=== PATIENT | female | born 1980 | race Hispanic/Latino ===

== ENCOUNTER 2018-06-05 22:43 | Emergency (ER) | payer OTHER ==
[2018-06-06] MEDS ORDERED: CYCLOBENZAPRINE 10 MG TAB ONE (00:05)
[2018-06-06] MEDS ORDERED: KETOROLAC 30 MG/ML INJ ONE (00:06)
--- NOTE | 2018-06-06 00:36 | EDPHYS ---
Physician Documentation [facility] Name: Sonia Lawrence Age: 37 yrs Sex: Female : 1980 Arrival Date: 06/05/2018 Time: 22:44 Bed 27 Private MD: ED Physician Ankush Dow HPI: 06/05 23:36 This 37 yrs old Female presents to ER via Ambulatory with complaints of Low snw Back Pain. 23:36 The patient presents with pain that is acute. The symptoms are located in the low back. snw The pain does not radiate. The problem was sustained when lifting from twisting. Onset: The symptoms/episode began/occurred suddenly, 3 day(s) ago, and became persistent. Associated signs and symptoms: The patient has no apparent associated signs or symptoms. Severity of symptoms: At their worst the symptoms were moderate. The patient has not experienced similar symptoms in the past. It is unknown whether or not the patient has recently seen a physician. 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 - Social history:: Smoking status: Patient/guardian denies using tobacco, Patient/guardian denies using alcohol, street drugs. - Ebola Screening: : No symptoms or risks identified at this time. ROS: 23:35 Constitutional: Negative for fever, chills, and weight loss, Eyes: Negative for injury, snw pain, redness, and discharge, ENT: Negative for injury, pain, and discharge, Neck: Negative for injury, pain, and swelling, Cardiovascular: Negative for chest pain, palpitations, and edema, Respiratory: Negative for shortness of breath, cough, wheezing, and pleuritic chest pain, Abdomen/GI: Negative for abdominal pain, nausea, vomiting, diarrhea, and constipation, : Negative for injury, bleeding, discharge, and swelling, MS/Extremity: Negative for injury and deformity, Skin: Negative for injury, rash, and discoloration, Neuro: Negative for headache, weakness, numbness, tingling, and seizure. 23:35 Back: Positive for decreased range of motion, pain at rest, pain with movement, of the right low back, started three days ago when she lifted her son to put him in the carseat. Exam: 23:35 Constitutional: This is a well developed, well nourished patient who is awake, alert, snw and in no acute distress. Head/Face: Normocephalic, atraumatic. Eyes: Pupils equal round and reactive to light, extra-ocular motions intact. Lids and lashes normal. Conjunctiva and sclera are non-icteric and not injected. Cornea within normal limits. Periorbital areas with no swelling, redness, or edema. ENT: Nares patent. No nasal discharge, no septal abnormalities noted. Tympanic membranes are normal and external auditory canals are clear. Oropharynx with no redness, swelling, or masses, exudates, or evidence of obstruction, uvula midline. Mucous membranes moist. Neck: Trachea midline, no thyromegaly or masses palpated, and no cervical lymphadenopathy. Supple, full range of motion without nuchal rigidity, or vertebral point tenderness. No Meningismus. Chest/axilla: Normal chest wall appearance and motion. Nontender with no deformity. No lesions are appreciated. Cardiovascular: Regular rate and rhythm with a normal S1 and S2. No gallops, murmurs, or rubs. Normal PMI, no JVD. No pulse deficits. Respiratory: Lungs have equal breath sounds bilaterally, clear to auscultation and percussion. No rales, rhonchi or wheezes noted. No increased work of breathing, no retractions or nasal flaring. Abdomen/GI: Soft, non-tender, with normal bowel sounds. No distension or tympany. No guarding or rebound. No evidence of tenderness throughout. Skin: Warm, dry with normal turgor. Normal color with no rashes, no lesions, and no evidence of cellulitis. MS/ Extremity: Pulses equal, no cyanosis. Neurovascular intact. Full, normal range of motion. Neuro: Awake and alert, GCS 15, oriented to person, place, time, and situation. Cranial nerves II-XII grossly intact. Motor strength 5/5 in all extremities. Sensory grossly intact. Cerebellar exam normal. Normal gait. Psych: Awake, alert, with orientation to person, place and time. Behavior, mood, and affect are within normal limits. 23:35 Back: pain, that is mild, of the right low back, ROM is painful, with rotation to the right, with flexion, with extension, CVA tenderness, is absent. Vital Signs: 23:11 BP 121 / 80; Pulse 67; Resp 16 S; Temp 98(O); Pulse Ox 98% on R/A; Weight 67.13 kg (R); bb Height 5 ft. 0 in. (152.40 cm) (R); Pain 5/10; 06/06 00:53 BP 122 / 78; Pulse 70; Resp 18; Pulse Ox 100% on R/A; Pain 1/10; mg2 06/05 23:11 Body Mass Index 28.90 (67.13 kg, 152.40 cm) bb MDM: 06/05 23:18 Patient medically screened. snw 06/06 00:32 Data reviewed: vital signs, nurses notes. Data interpreted: Pulse oximetry: on room air snw is 98 %. Interpretation: normal. Counseling: I had a detailed discussion with the patient and/or guardian regarding: the historical points, exam findings, and any diagnostic results supporting the discharge/admit diagnosis, the presence of at least one elevated blood pressure reading (>120/80) during this emergency department visit, lab results, radiology results, the need for outpatient follow up, to return to the emergency department if symptoms worsen or persist or if there are any questions or concerns that arise at home. Response to treatment: There is no appreciated change of the patient's symptoms at this time. Special discussion: I have referred the patient to see his PCP for further evaluation of high blood pressure. Based on the history and exam findings, there is no indication for further emergent testing or inpatient evaluation. I discussed with the patient/guardian the need to see the primary care provider for further evaluation of the symptoms. 00:32 ED course: pt x-ray with loss of normal lordosis, + large amount of stool throughout snw the colon. 06/05 22:48 Order name: Urine Culture snw 06/05 22:48 Order name: Urine Microscopic Only snw 06/06 00:01 Order name: Lumbar Spine (3 Views) XRAY snw 06/06 00:02 Order name: Urine Dipstick--Ancillary (enter results) ar5 04/24 00:02 Order name: Urine --Ancillary (enter results) ar5 06/05 22:48 Order name: Urine Test (obtain specimen); Complete Time: 00:00 snw 06/05 22:48 Order name: Urine Dipstick-Ancillary (obtain specimen); Complete Time: 00:00 snw Administered Medications: 00:04 Drug: TORadol 30 mg Route: IM; Site: right deltoid; mg2 00:41 Follow up: Response: No adverse reaction; Marked relief of symptoms mg2 00:04 Drug: Flexeril 10 mg Route: PO; mg2 00:41 Follow up: Response: No adverse reaction; Marked relief of symptoms mg2 00:41 Drug: Magnesium Citrate Liquid 300 ml Route: PO; mg2 00:41 Follow up: Response: No adverse reaction; Medication administered at discharge. mg2 Disposition: 02:46 Co-signature as Attending Physician, Ankush Dow MD. rn Disposition: 06/06/18 00:35 Discharged to Home. Impression: Low back pain, Muscle spasm of back, Constipation. - Condition is Stable. - Discharge Instructions: Back Pain, Adult, Constipation, Adult, High-Fiber Diet, Hypertension, Muscle Cramps and Spasms, Musculoskeletal Pain, Cryotherapy, Rehydration, Adult, Heat Therapy. - Prescriptions for Diclofenac Sodium 75 mg Oral Tablet Sustained Release - take 1 tablet by ORAL route 2 times per day; 30 tablet. orphenadrine citrate 100 mg Oral Tablet Sustained Release - take 1 tablet by ORAL route 2 times per day As needed; 20 tablet. - Work release form, Medication Reconciliation Form, Thank You Letter, Antibiotic Education, Prescription Opioid Use form. - Follow up: Private Physician; When: 2 - 3 days; Reason: Recheck today's complaints, Continuance of care, Re-evaluation by your physician. Follow up: Emergency Department; When: As needed; Reason: Worsening of condition. Signatures: Dispatcher [employer] EDMinnie Norman, ERIC-C HEALTHCARE ASSOCIATE-Csnw Jayne Moore RN RN bb Nieto, Roman, MD MD rn Gardose, Michele, RN RN mg2 Corrections: (The following items were deleted from the chart) 01:02 00:35 06/06/2018 00:35 Discharged to Home. Impression: Low back pain; Muscle spasm of mg2 back; Constipation. Condition is Stable. Forms are Medication Reconciliation Form, Thank You Letter, Antibiotic Education, Prescription Opioid Use. Follow up: Private Physician; When: 2 - 3 days; Reason: Recheck today's complaints, Continuance of care, Re-evaluation by your physician. Follow up: Emergency Department; When: As needed; Reason: Worsening of condition. snw
--- NOTE | 2018-06-06 00:36 | ER ---
Nurse's Notes [facility] Name: Sonia Lawrence Age: 37 yrs Sex: Female : 1980 Arrival Date: 06/05/2018 Time: 22:44 Bed 27 Private MD: Diagnosis: Low back pain;Muscle spasm of back;Constipation Presentation: 06/05 23:06 Presenting complaint: Patient states: she is having right lower back pain since Monday bb she lifted her son and felt a cramping pain in her lower back and couldn't hardly stand up and the pain has not gone away and worsens with movement. Transition of care: patient was not received from another setting of care. Onset of symptoms was June 01, 2018. Risk Assessment: Do you want to hurt yourself or someone else? Patient reports no desire to harm self or others. Initial Sepsis Screen: Does the patient meet any 2 criteria? No. Patient's initial sepsis screen is negative. Does the patient have a suspected source of infection? No. Patient's initial sepsis screen is negative. Care prior to arrival: None. 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 - Social history:: Smoking status: Patient/guardian denies using tobacco, Patient/guardian denies using alcohol, street drugs. - Ebola Screening: : No symptoms or risks identified at this time. Screenin:16 Abuse screen: Denies threats or abuse. Denies injuries from another. Nutritional mg2 screening: No deficits noted. Tuberculosis screening: No symptoms or risk factors identified. Fall Risk None identified. Assessment: 23:14 General: Appears in no apparent distress. comfortable, Behavior is calm, cooperative. mg2 Pain: Complains of pain in lower back Pain does not radiate. Pain currently is 5 out of 10 on a pain scale. Quality of pain is described as aching, Pain began gradually, 4 days ago Is intermittent. Neuro: Level of Consciousness is awake, alert, obeys commands, Oriented to person, place, time, situation. Cardiovascular: Capillary refill < 3 seconds Patient's skin is warm and dry. Respiratory: Airway is patent Respiratory effort is even, unlabored, Respiratory pattern is regular, symmetrical. GI: No signs and/or symptoms were reported involving the gastrointestinal system. : No signs and/or symptoms were reported regarding the genitourinary system. EENT: No signs and/or symptoms were reported regarding the EENT system. Derm: Skin is intact, is healthy with good turgor, Skin is pink, warm \T\ dry. normal. Musculoskeletal: Circulation, motion, and sensation intact. Capillary refill < 3 seconds, Reports pain in back since . 06/06 00:12 Reassessment: patient sent to xray via wheelchair. mg2 Vital Signs: 06/05 23:11 BP 121 / 80; Pulse 67; Resp 16 S; Temp 98(O); Pulse Ox 98% on R/A; Weight 67.13 kg (R); bb Height 5 ft. 0 in. (152.40 cm) (R); Pain 5/10; 06/06 00:53 BP 122 / 78; Pulse 70; Resp 18; Pulse Ox 100% on R/A; Pain 1/10; mg2 06/05 23:11 Body Mass Index 28.90 (67.13 kg, 152.40 cm) bb ED Course: 06/05 22:44 Patient arrived in ED. am2 22:49 Minnie Barajas FNP-C [facility]. snw 22:49 Ankush Dow MD is Attending Physician. snw 23:00 Marc Jacobs RN is Primary Nurse. mg2 23:11 Triage completed. bb 23:11 Arm band placed on Patient placed in an exam room, on a stretcher, on pulse oximetry. bb 23:17 Patient has correct armband on for positive identification. Door closed. mg2 23:17 No provider procedures requiring assistance completed. Patient did not have IV access mg2 during this emergency room visit. 06/06 00:19 Patient moved to radiology via wheelchair. kw 00:19 X-ray completed. Patient tolerated procedure well. kw 00:19 Patient moved back from radiology. kw 00:20 Lumbar Spine (3 Views) XRAY In Process Unspecified. EDMS Administered Medications: 00:04 Drug: TORadol 30 mg Route: IM; Site: right deltoid; mg2 00:41 Follow up: Response: No adverse reaction; Marked relief of symptoms mg2 00:04 Drug: Flexeril 10 mg Route: PO; mg2 00:41 Follow up: Response: No adverse reaction; Marked relief of symptoms mg2 00: Drug: Magnesium Citrate Liquid 300 ml Route: PO; mg2 00:41 Follow up: Response: No adverse reaction; Medication administered at discharge. mg2 Outcome: 00:35 Discharge ordered by MD. olmos 00:54 Discharged to home ambulatory. mg2 :54 Condition: stable 00:54 Discharge instructions given to patient, Instructed on discharge instructions, follow up and referral plans. medication usage, Demonstrated understanding of instructions, follow-up care, medications, Prescriptions given X 2. 01:02 Patient left the ED. mg2 Signatures: Dispatcher [employer] EDMS Minnie Barajas, WIRE TECHNICIAN-C WIRE TECHNICIAN-Csnw Jayne Moore RN RN bb Whitley, Kimberlee kw Moreno, Amanda [facility] Marc Jacobs RN RN mg2
[2018-06-06] MEDS ORDERED: MAGNESIUM CITRATE 300 ML BOT ONE (00:51)
[2018-06-06 01:12] VITALS: TEMP 98
[2018-06-06 01:12] LABS: Urine Blood NEGATIVE (NEG); Urine Glucose NEGATIVE (NEG); Urine Protein NEGATIVE (NEG)
[2018-06-06 01:14] VITALS: BP 122/78; O2SAT 100
--- NOTE | 2018-06-06 07:53 | RAD REPORT ---
EXAM DESCRIPTION: RAD - Lumbar Spine 3 Views - 06/06/2018 12:23 am CLINICAL HISTORY: Back pain FINDINGS: The alignment of the lumbar spine is satisfactory. No fracture or dislocation is seen. Minimal spondylosis involves the lumbar spine
== END 2018-06-06 01:02 | disposition home or self-care (01) ==
LOC: ER 22:43
DX: M54.5 Low back pain (principal); M62.830 Muscle spasm of back; K59.00 Constipation, unspecified
CPT/HCPCS: 72100; 81003; 81015; 81025; 87086; 87088; 96372; 99284

== ENCOUNTER 2020-04-07 15:06 | Emergency (ER) | payer OTHER, SELFPAY ==
--- OUTSIDE RECORDS SUMMARY | 2020-04-07 15:10 | XMS REPORT | Continuity of Care Document ---
:1980 Author Organization [facility] t Address [address] [place] [address] Care Team Providers Name Role Phone Unavailable Unavailable Unavailable Payers Payer Name Policy Type Policy Number Effective Date Expiration Date S ource Problems This patient has no known problems. Allergies, Adverse Reactions, Alerts Allergy Allergy Status Severity Reaction(s) Onset Inactive Treating Comm ents Source Name Type Date Date Clinician No Known DA Active U [facility] Allergie 08-14 Clear s 00:00: Poll[facility] No Known DA Active U [facility] Contrast 05-22 Clear Allergie 00:00: [facility] No Known DA Active U [facility] Drug 05-22 Clear Allergie 00:00: [facility] No Known DA Active U [facility] Food 05-22 Clear Allergie 00:00: [facility] No Known DA Active U 2007- [facility] Other 05-22 Clear Allergie 00:00: [facility] Medications This patient has no known medications. Procedures This patient has no known procedures. Results Test Description Test Time Test Comments Results Result [facility] e Comments SURGICAL SPECIMENS 2019-08-21 12:24:00 --------RUN DATE: 08/21/19 [facility] *LIVE* PAGE 1 RUN TIME: 1224 Specimen Inquiry RUN USER: INTERFACE --------PATIENT: DIONNE KEVIN LOC: [facility] U #: [id number] AGE/SX: 39/F ROOM: [facility] RE08/16/19REG DR: Irene Reynolds MD : [birth year] BED: 1 DIS: 08/17/19 STATUS: DIS IN TLOC: -------- SPEC #: [id number] RECD: 08/19/19 STATUS: SOUOmar REQ #: [id number] YVONNE: 08/19/[address]: Irene Reynolds MD ENTERED: 08/21/19 SP TYPE: SURG SPEC OTHR DR: Self Referred Isabel Adamson DOORDERED: GM LEVEL 4 CODES: [id number] - PLACENTA, NOS COPIES TO: Self Referred Irene Reynolds MD [address] [place] [address] [address] [place] [address] [email or web address] Isabel Adamson DO [address] [facility], [address] [place], [place] [id number] PROCEDURES: LEVEL 4 (Incomplete) TISSUES: 1. PLACENTA, NOS - Placenta, 3rd trimester FINAL DIAGNOSIS Placenta, 3rd trimester: Histologically mature magallon placenta (492 g, 40th percentile for gestational age), acute chorionitis with phlebitis of umbilical cord. GROSS AND MICROSCOPIC GROSS EXAMINATION: Received in formalin labeled placenta is a 492 g 16 x 15 x 2.4 cm placenta. The surface is bluegray with tortuous vessels on the surface. The maternal surface is intact with abundant adherent hemorrhage. The membranes are thickened and cloudy. The eccentric inserted three-vessel umbilical cord measures 20 cm in length 1 cm in diameter. The parenchyma is beefy red without identified lesions. SECTION CODE: (A) Membranes (B) umbilical cord (C)-(E) placental parenchyma. MICROSCOPIC EXAMINATION: Sections of the umbilical cord reveal three CONTINUED ON NEXT PAGE --------RUN DATE: 08/21/19 [facility] *LIVE* PAGE 2 RUN TIME: 1224 Specimen Inquiry RUN USER: INTERFACE --------SPEC #: [id number] PATIENT: DORITADIONNE #[id number] (Continued) GROSS AND MICROSCOPIC (Continued) vessels with acute inflammation of the vein. The membranes and surface show acute inflammation of the chorion. Maturation is appropriate for gestational age. The underlying maternal decidua beneath the placenta contains a mixed inflammatory infiltrate. POST-OP DIAGNOSIS Spontaneous rupture of membranes, term intrauterine , delivered PRE-OP DIAGNOSIS Spontaneous rupture of membranes, term intrauterine Signed SIGNATURE ON FILE Oh West DO 08/21/19 1224 -------- END OF REPORT GLUBED 2019-08-19 06:48:00 Test Item Value Reference Range Interpretation Comme nts GLUBED (test code = GLUBED) 74 MG/DL 70-110 N Performed by certified pinked edge sewing machine operator at [facility] CBC W/AUTO [id number] 07:25:00 Test Item Value Reference Range Interpretation Comments WHITE BLOOD CELL (test code = 9.02 x10 3/uL 4.5-11.0 N WBC) RED BLOOD CELL (test code = 3.54 x10 6/uL 3.54-5.02 N RBC) HEMOGLOBIN (test code = HGB) 9.3 g/dL 11.0-15.0 L HEMATOCRIT (test code = HCT) 30.4 % 33.0-45.0 L MEAN CELL VOLUME (test code = 85.9 fL 81.0-99.0 N MCV) MEAN CELL HGB (test code = MCH) 26.3 pg 27.0-33.0 L MEAN CELL HGB CONCETRATION 30.6 g/dL 33.0-37.0 L (test code = MCHC) RED CELL DISTRIBUTION WIDTH CV 16.4 % 11.5-14.5 H (test code = RDW) RED CELL DISTRIBUTION WIDTH SD 50.4 fL 37.0-54.0 N (test code = RDW-SD) PLATELET COUNT (test code = 186 x10 3/uL 150-400 N PLT) MEAN PLATELET VOLUME (test code 12.3 fL 7.0-9.0 H = MPV) NEUTROPHIL % (test code = NT%) 78.4 % 56.0-77.0 H IMMATURE GRANULOCYTE % (test 0.3 % 0.0-2.0 N code = IG%) LYMPHOCYTE % (test code = LY%) 15.3 % 14.0-32.0 N MONOCYTE % (test code = MO%) 5.7 % 4.8-9.0 N EOSINOPHIL % (test code = EO%) 0.1 % 0.3-3.7 L BASOPHIL % (test code = BA%) 0.2 % 0.0-2.0 N NUCLEATED RBC % (test code = 0.0 % 0-0 N NRBC%) NEUTROPHIL # (test code = NT#) 7.07 x10 3/uL 2.0-7.6 N IMMATURE GRANULOCYTE # (test 0.03 x10 3/uL 0.00-0.03 N code = IG#) LYMPHOCYTE # (test code = LY#) 1.38 x10 3/uL 1.0-3.8 N MONOCYTE # (test code = MO#) 0.51 x10 3/uL 0.1-0.8 N EOSINOPHIL # (test code = EO#) 0.01 x10 3/uL 0.0-0.2 N BASOPHIL # (test code = BA#) 0.02 x10 3/uL 0.0-0.2 N NUCLEATED RBC # (test code = 0.00 x10 3/uL 0.0-0.1 N NRBC#) MANUAL DIFF REQUIRED (test code NO = MDIFF) [id number] 23:56:00 Test Item Value Reference Range Interpretation Comments GLUBED (test code = 62 MG/DL 70-110 L Performe d by certified GLUBED) pinked edge sewing machine operator at [facility] RAPID PLASMA [id number] 23:32:00 Test Item Value Reference Range Interpretation Comments RAPID PLASMA REAGIN (test code = NONREACTIVE NONREACTIVE RPR) AG HEPATITIS B [id number] 23:32:00 Test Item Value Reference Range Interpretation Comments AG HEPATITIS B SURFACE NON REACTIVE INDEX NonReactive (test code = HBSAG) AB HIV 1 23:32:00 Test Item Value Reference Range Interpretation Comments AB HIV 1 2 (test code = NONREACTIVE INDEX NONREACTIVE [id number]) RAPID PLASMA [id number] 22:48:00 Test Item Value Reference Range Interpretation Comments RAPID PLASMA REAGIN (test code = NONREACTIVE NONREACTIVE RPR) AG HEPATITIS B [id number] 22:48:00 Test Item Value Reference Range Interpretation Comments AG HEPATITIS B SURFACE NON REACTIVE INDEX NonReactive (test code = HBSAG) AB HIV 1 22:48:00 Test Item Value Reference Range Interpretation Comments AB HIV 1 2 (test code = [id number]) INDEX NONREACTIVE RAPID PLASMA [id number] 11:17:00 Test Item Value Reference Range Interpretation Comments RAPID PLASMA REAGIN (test code = NONREACTIVE NONREACTIVE RPR) AG HEPATITIS B [id number] 11:17:00 Test Item Value Reference Range Interpretation Comments AG HEPATITIS B SURFACE (test code = INDEX NonReactive HBSAG) AB HIV 1 11:17:00 Test Item Value Reference Range Interpretation Comments AB HIV 1 2 (test code = [id number]) INDEX NONREACTIVE [id number] 09:10:00 Test Item Value Reference Range Interpretation Comments GLUBED (test code = 100 MG/DL 70-110 N Performe d by certified GLUBED) pinked edge sewing machine operator at [facility] CBC W/AUTO [id number] 06:31:00 Test Item Value Reference Range Interpretation Comments WHITE BLOOD CELL (test code = 6.47 x10 3/uL 4.5-11.0 N WBC) RED BLOOD CELL (test code = 3.54 x10 6/uL 3.54-5.02 N RBC) HEMOGLOBIN (test code = HGB) 9.4 g/dL 11.0-15.0 L HEMATOCRIT (test code = HCT) 30.2 % 33.0-45.0 L MEAN CELL VOLUME (test code = 85.3 fL 81.0-99.0 N MCV) MEAN CELL HGB (test code = MCH) 26.6 pg 27.0-33.0 L MEAN CELL HGB CONCETRATION 31.1 g/dL 33.0-37.0 L (test code = MCHC) RED CELL DISTRIBUTION WIDTH CV 16.1 % 11.5-14.5 H (test code = RDW) RED CELL DISTRIBUTION WIDTH SD 50.0 fL 37.0-54.0 N (test code = RDW-SD) PLATELET COUNT (test code = 183 x10 3/uL 150-400 N PLT) MEAN PLATELET VOLUME (test code 11.6 fL 7.0-9.0 H = MPV) NEUTROPHIL % (test code = NT%) 65.0 % 56.0-77.0 N IMMATURE GRANULOCYTE % (test 0.5 % 0.0-2.0 N code = IG%) LYMPHOCYTE % (test code = LY%) 26.9 % 14.0-32.0 N MONOCYTE % (test code = MO%) 7.1 % 4.8-9.0 N EOSINOPHIL % (test code = EO%) 0.3 % 0.3-3.7 N BASOPHIL % (test code = BA%) 0.2 % 0.0-2.0 N NUCLEATED RBC % (test code = 0.0 % 0-0 N NRBC%) NEUTROPHIL # (test code = NT#) 4.21 x10 3/uL 2.0-7.6 N IMMATURE GRANULOCYTE # (test 0.03 x10 3/uL 0.00-0.03 N code = IG#) LYMPHOCYTE # (test code = LY#) 1.74 x10 3/uL 1.0-3.8 N MONOCYTE # (test code = MO#) 0.46 x10 3/uL 0.1-0.8 N EOSINOPHIL # (test code = EO#) 0.02 x10 3/uL 0.0-0.2 N BASOPHIL # (test code = BA#) 0.01 x10 3/uL 0.0-0.2 N NUCLEATED RBC # (test code = 0.00 x10 3/uL 0.0-0.1 N NRBC#) MANUAL DIFF REQUIRED (test code NO = MDIFF) AMNISURE (ROM) [id number] 05:54:00 Test Item Value Reference Range Interpretation Comments AMNISURE (ROM) TEST (test code = POSITIVE NEGATIVE A AMNI)
[2020-04-07 16:35] LABS: SARS-COV-2 RT PCR NEGATIVE (NEGATIVE)
--- NOTE | 2020-04-07 16:48 | ER ---
Nurse's Notes [facility] Name: Sonia Lawrence Age: 39 yrs Sex: Female : 1980 Arrival Date: 04/07/2020 Time: 15:09 Bed 26 Private MD: Diagnosis: Acute sinusitis Presentation: 04/07 15:21 Chief complaint: Patient states: Congestion, cough, ESTRADA, fatigue, body aches, loss of ll1 taste for 4 days. No known fever. Coronavirus screen: Client denies travel out of the [place] in the last 14 days. congestion, cough unrelated to allergies, difficulty breathing, fatigue, headache, muscle pain, runny nose, shaking with chills, sore throat, loss of taste or smell, Client presents with at least one sign or symptom that may indicate coronavirus-19. Standard/surgical mask placed on the client. Ebola Screen: Patient denies travel to an Ebola-affected area in the 21 days before illness onset. Initial Sepsis Screen: Does the patient meet any 2 criteria? No. Patient's initial sepsis screen is negative. Does the patient have a suspected source of infection? Yes: Productive cough/pneumonia. Risk Assessment: Do you want to hurt yourself or someone else? Patient reports no desire to harm self or others. Onset of symptoms was April 03, 2020. 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 - Social history:: Smoking status: Patient denies any tobacco usage or history of. Screenin:35 Abuse screen: Denies threats or abuse. Nutritional screening: No deficits noted. tw2 Tuberculosis screening: No symptoms or risk factors identified. Fall Risk None identified. Assessment: 15:36 General: Appears in no apparent distress. Behavior is calm, cooperative, appropriate tw2 for age. Pain: Denies pain. Respiratory: Reports cough that is non-productive, persistent pt reports loss of sense of smell and taste. GI: No signs and/or symptoms were reported involving the gastrointestinal system. : No signs and/or symptoms were reported regarding the genitourinary system. EENT: Reports nasal congestion nasal discharge. Musculoskeletal: Range of motion: intact in all extremities. 16:41 Reassessment: Patient appears in no apparent distress at this time. No changes from tw2 previously documented assessment. Patient and/or family updated on plan of care and expected duration. Pain level reassessed. Patient is alert, oriented x 3, equal unlabored respirations, skin warm/dry/pink. provider at bedside at this time. 17:21 Reassessment: Patient appears in no apparent distress at this time. No changes from tw2 previously documented assessment. Patient and/or family updated on plan of care and expected duration. Pain level reassessed. Patient is alert, oriented x 3, equal unlabored respirations, skin warm/dry/pink. Vital Signs: 15:21 BP 132 / 70; Pulse 76; Resp 17; Temp 97.5; Pulse Ox 100% ; Weight 74.39 kg; Height 5 ll1 ft. 0 in. (152.40 cm); Pain 8/10; 17:21 BP 115 / 68; Pulse 77; Resp 18; Pulse Ox 99% on R/A; tw2 15:21 Body Mass Index 32.03 (74.39 kg, 152.40 cm) ll1 ED Course: 15:09 Patient arrived in ED. as 15:20 Loraine Graham FNP-C is [facility]. kb 15:20 Jesus Espinal MD is Attending Physician. kb 15:23 Triage completed. ll1 15:23 Arm band placed on. ll1 15:30 Placed in gown. Bed in low position. Call light in reach. Pulse ox on. NIBP on. tw2 15:35 Janna Osuna, RN is Primary Nurse. tw2 17:20 No provider procedures requiring assistance completed. Patient did not have IV access tw2 during this emergency room visit. Administered Medications: 16:54 Drug: Decadron 10 mg Route: IM; Site: right deltoid; tw2 17:21 Follow up: Response: No adverse reaction tw2 Outcome: 16:48 Discharge ordered by . kb 17:20 Discharged to home ambulatory. tw2 17:20 Condition: stable 17:20 Discharge instructions given to patient, Instructed on discharge instructions, follow up and referral plans. medication usage, Demonstrated understanding of instructions, follow-up care, medications, Prescriptions given X 1. 17:21 Patient left the ED. tw2 Signatures: Loraine Graham, LIVESTOCK FARM MANAGER-C LIVESTOCK FARM MANAGER-Marisa Schofield Tara RN RN tw2 Jad Mckenna RN RN ll1 Corrections: (The following items were deleted from the chart) 15:56 15:52 Influenza Screen (A \T\ B)+BA.LAB.BRZ drawn and sent. tw2 EDMS
--- NOTE | 2020-04-07 16:48 | EDPHYS ---
Physician Documentation [facility] Name: Sonia Lawrence Age: 39 yrs Sex: Female : 1980 Arrival Date: 04/07/2020 Time: 15:09 Bed 26 Private MD: ED Physician Jesus Espinal HPI: 04/07 16:56 This 39 yrs old Female presents to ER via Ambulatory with complaints of kb Congestion. 16:58 The patient or guardian reports cough, that is intermittent, described as mild, with no kb sputum. Onset: The symptoms/episode began/occurred 5 day(s) ago. Severity of symptoms: At their worst the symptoms were moderate, in the emergency department the symptoms are unchanged. Modifying factors: The symptoms are alleviated by nothing, the symptoms are aggravated by nothing. Associated signs and symptoms: Pertinent positives: rhinorrhea. The patient has not experienced similar symptoms in the past. The patient has not recently seen a physician. 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 - Social history:: Smoking status: Patient denies any tobacco usage or history of. ROS: 16:52 Constitutional: Negative for fever, chills, and weight loss, Cardiovascular: Negative kb for chest pain, palpitations, and edema, Abdomen/GI: Negative for abdominal pain, nausea, vomiting, diarrhea, and constipation, Back: Negative for injury and pain, MS/Extremity: Negative for injury and deformity, Skin: Negative for injury, rash, and discoloration. 16:52 ENT: Positive for rhinorrhea, sinus congestion. 16:52 Respiratory: Positive for cough, Negative for dyspnea on exertion, hemoptysis, orthopnea, pleurisy, shortness of breath, sputum production, wheezing. 16:52 Neuro: Positive for headache. Exam: 16:52 Constitutional: This is a well developed, well nourished patient who is awake, alert, kb and in no acute distress. Head/Face: Normocephalic, atraumatic. Chest/axilla: Normal chest wall appearance and motion. Nontender with no deformity. No lesions are appreciated. Cardiovascular: Regular rate and rhythm with a normal S1 and S2. No gallops, murmurs, or rubs. Normal PMI, no JVD. No pulse deficits. Respiratory: Lungs have equal breath sounds bilaterally, clear to auscultation and percussion. No rales, rhonchi or wheezes noted. No increased work of breathing, no retractions or nasal flaring. Skin: Warm, dry with normal turgor. Normal color with no rashes, no lesions, and no evidence of cellulitis. MS/ Extremity: Pulses equal, no cyanosis. Neurovascular intact. Full, normal range of motion. 16:52 Neuro: Orientation: is normal, to person, place, time \T\ situation. Mentation: is normal, able to follow commands, Motor: is normal, moves all fours, Sensation: Gait: is steady, without difficulty. Vital Signs: 15:21 BP 132 / 70; Pulse 76; Resp 17; Temp 97.5; Pulse Ox 100% ; Weight 74.39 kg; Height 5 ll1 ft. 0 in. (152.40 cm); Pain 8/10; 17:21 BP 115 / 68; Pulse 77; Resp 18; Pulse Ox 99% on R/A; tw2 15:21 Body Mass Index 32.03 (74.39 kg, 152.40 cm) ll1 MDM: 15:[address] [facility] 16:54 Data reviewed: vital signs, nurses notes. Data interpreted: Pulse oximetry: on room air kb is 100 %. Interpretation: normal. Counseling: I had a detailed discussion with the patient and/or guardian regarding: the historical points, exam findings, and any diagnostic results supporting the discharge/admit diagnosis, lab results, the need for outpatient follow up, a family practitioner, to return to the emergency department if symptoms worsen or persist or if there are any questions or concerns that arise at home. 04/07 16:35 Order name: COVID-19/FLU A+B; Complete Time: 16:35 EDMS Administered Medications: 16:54 Drug: Decadron 10 mg Route: IM; Site: right deltoid; tw2 17:21 Follow up: Response: No adverse reaction tw2 Disposition: 04/08 08:00 Co-signature as Attending Physician, Jesus Espinal MD I agree with the assessment and [facility] plan of care. Disposition: 04/07/20 16:48 Discharged to Home. Impression: Acute sinusitis. - Condition is Stable. - Discharge Instructions: Sinusitis, Adult, [id number]. - Prescriptions for Tessalon Perles 100 mg Oral Capsule - take 1 capsule by ORAL route every 8 hours As needed; 15 capsule. - Medication Reconciliation Form, Thank You Letter, Antibiotic Education, Prescription Opioid Use, Work release form form. - Follow up: Emergency Department; When: As needed; Reason: Worsening of condition. Follow up: Private Physician; When: 2 - 3 days; Reason: Recheck today's complaints, Continuance of care, Re-evaluation by your physician. Signatures: Dispatcher [employer] EDNM Loraine Graham, FORM WORKER-C FORM WORKER-Ckb Jesus Espinal MD MD cha Wise, Tara, RN RN tw2 Jad Mckenna RN RN ll1 Corrections: (The following items were deleted from the chart) 04/07 15:56 15:27 Influenza Screen (A \T\ B)+BA.LAB.BRZ ordered. EDNM EDNM 15:56 15:27 CORONAVIRUS+MR.LAB.BRZ ordered. [facility] EDMS 17:21 16:48 04/07/2020 16:48 Discharged to Home. Impression: Acute sinusitis. Condition is tw2 Stable. Forms are Work release form, Medication Reconciliation Form, Thank You Letter, Antibiotic Education, Prescription Opioid Use. Follow up: Emergency Department; When: As needed; Reason: Worsening of condition. Follow up: Private Physician; When: 2 - 3 days; Reason: Recheck today's complaints, Continuance of care, Re-evaluation by your physician. kb
[2020-04-07] MEDS ORDERED: dexAMETHasone 10 MG/ML VIAL ONE (17:01)
[2020-04-07 17:25] VITALS: TEMP 97.5
[2020-04-07 17:26] VITALS: BP 115/68; O2SAT 99
== END 2020-04-07 17:21 | disposition home or self-care (01) ==
LOC: ER 15:06
DX: J01.90 Acute sinusitis, unspecified (principal); Z20.822 Contact with and (suspected) exposure to COVID-19
CPT/HCPCS: 0240U; 96372; 99283; J1100